=== PATIENT | female | born 1945 | race Caucasian/White ===

== ENCOUNTER 2018-11-14 07:18 | Day surgery (SDC) | payer OTHER ==
[2018-11-09 14:38] VITALS: BMI 27.4
--- NOTE | 2018-11-14 07:15 | HP ---
History & Physical Update - History History: No Change - Physical Physical: No Change - Assessment Assessment: No Change - Plan Plan: No Change (Initial H&P is locate din her paper chart. No new medications or complaints. Here today for elective L5/S1 laminectomy. (LBP with LLE radiculopathy))
[2018-11-14] MEDS ORDERED: GABAPENTIN 300 MG CAPSULE (FP) PO STA (08:12)
[2018-11-14] MEDS ORDERED: MIDAZOLAM HCL 2 MG/2 ML SINGLE DOSE VIAL ONE ×3 (11:22→12:39)
[2018-11-14] MEDS ORDERED: ROPIVACAINE HCL 0.5% 30ML VIAL ONE (11:23)
[2018-11-14] MEDS ORDERED: methylPREDNISolone ACET (DEPO) 40 MG/1 ML VIAL ONE (11:35)
[2018-11-14] MEDS ORDERED: THROMBIN (BOVINE) 5,000 UNIT VIAL TP ONE (11:36)
[2018-11-14] MEDS ORDERED: DEXAMETHASONE SOD PHOSPHATE 4 MG/1 ML VIAL ONE ×2 (12:26→12:33)
[2018-11-14] MEDS ORDERED: LIDOCAINE 1%/EPI 1:100000 (20 ML MULTI DOSE VIAL) INF ONE ×2 (12:30→13:19)
[2018-11-14] MEDS ORDERED: ceFAZolin SODIUM 1 GM VIAL ONE (12:33)
[2018-11-14] MEDS ORDERED: ONDANSETRON 4 MG/2 ML VIAL ONE (12:33)
[2018-11-14] MEDS ORDERED: LIDOCAINE 1%/EPI 1:100000 (20 ML MULTI DOSE VIAL) ONE (12:34)
--- NOTE | 2018-11-14 13:45 | SURG ---
Surgery Clinical Rn Manager Note Clinical Rn Manager: Pawan Scales PA-C Date of Service: 11/14/18 Diagnosis: Chronic LBP, Spinal stenosis L5/S1 with lower extremity radiculopathy Procedure: L5/S1 bilateral laminectomy I was present for the entirety of the operative procedure. For further detail, please refer to operative report. Visit type - Case Type Case Type: Scheduled - New patient This patient is new to me today: Yes Date on this admission: 11/14/18
--- NOTE | 2018-11-14 13:45 | OP ---
Operative Note - Note: Operative Date: 11/14/18 Pre-Operative Diagnosis: Chronic LBP, Spinal stenosis L5/S1 with lower extremity radiculopathy Operation: L5/S1 bilateral laminectomy Post-Operative Diagnosis: Same as Pre-op Surgeon: Fer Marmolejo Business Analysis Consultant: Pawan Scales Anesthesiologist/TRADE SHOW COORDINATOR: Taz Wolf Anesthesia: General, Spinal Estimated Blood Loss (mls): 20 Fluid Volume Replaced (mls): 800 Operative Report Dictated: Yes
[2018-11-14] MEDS ORDERED: ONDANSETRON 4 MG/2 ML VIAL IVPUSH PRN (14:52)
[2018-11-14] MEDS ORDERED: oxyCODONE HCL 5 MG TABLET PO PRN (14:52)
[2018-11-14] MEDS ORDERED: LACTATED RINGERS SOLUTION 1,000 ML IV SCH (15:00)
[2018-11-14 16:40] VITALS: TEMP 97.5
[2018-11-14] MEDS ORDERED: oxyCODONE HCL 5 MG TABLET ONE (18:29)
[2018-11-14 19:04] VITALS: PULSE 63
[2018-11-14 19:14] VITALS: BP 131/66
--- NOTE | 2018-11-15 08:48 | OP ---
DATE OF OPERATION: 11/14/2018 PREOPERATIVE DIAGNOSIS: Spinal stenosis, L5-S1. POSTOPERATIVE DIAGNOSIS: Spinal stenosis, L5-S1. PROCEDURE PERFORMED: Laminectomy, L5-S1. SURGEON: Fer Marmolejo MD WARD SUPERVISOR: TANIA Castañeda ESTIMATED BLOOD LOSS: 50 mL. INTRAVENOUS FLUIDS: Per Anesthesia. ANESTHESIA: Spinal/TLIP. COMPLICATIONS: There were none. DISPOSITION: Patient brought to the PACU in stable condition. INDICATIONS FOR SURGERY: The patient is a 73-year-old female who has been suffering from pain from her back down her legs. X-rays and MRI were completed, which noted that she had spinal stenosis at L5-S1. She had gone through an exhaustive course of treatment which included medications, physical therapy, as well as injections. Unfortunately, her pain continued to persist despite all this. At this point, risks, benefits, and alternatives were discussed, and the patient consented to surgery. OPERATIVE NOTE: Patient was brought to the operating room by the Anesthesia staff. After appropriate patient identification was performed, spinal anesthesia was given along with a TLIP block. Patient was able to position herself prone onto the OR table with all areas of bony prominences well padded. At this time, 2 needles were placed into the back to daphne off the L5-S1 segment. An x-ray was taken to confirm this was correct. The needle was removed, and 10 mL of lidocaine with epinephrine was injected into the back at this time. Her back was prepped and draped in a sterile manner. At this point, a time-out was completed. An incision was made from the top of L5 down to the bottom of S1. Dissection was carried down to the fascia. Fascia was split open at this time, and retractor blades were placed in. A spinal needle was placed onto the L5 lamina. An x-ray was taken to confirm this was correct. The needle was removed, and a microscope was brought in to confirm segment of L5-S1 was removed. Portion of the L5-S1 spinous processes were removed. Portions of the lamina were removed. The segment was identified and removed. A complete decompression was performed such that by the end of the procedure, the S1 nerve roots appeared to be well decompressed. All bleeding was well controlled at this time. Steroids were placed over the nerve root. Floseal was placed over that. The fascia was closed with a No. 1 Vicryl suture. The subcutaneous tissues were closed with 2-0 Vicryl suture. Skin was closed with 3-0 Monocryl suture. Dermabond was applied. Steri-Strips were applied, and sterile dressings applied. Patient was placed supine, left the OR and went to the PACU in stable condition. Mateo [id number]
== END 2018-11-14 18:45 | disposition home or self-care (01) ==
LOC: FASU 07:18
PROVIDERS: ATTEND Orthopaedic Surgery Orthopaedic Surgery of the Spine
PROC: 01NB0ZZ Release Lumbar Nerve, Open Approach (ICD-10-PCS; principal; 2018-11-14 12:08)
DX: M48.07 Spinal stenosis, lumbosacral region (principal)
CPT/HCPCS: 72100-TC-FY; 76000-TC-FY; 94760